=== PATIENT | male | born 1955 | race Two or more races ===

== ENCOUNTER 2019-03-19 08:26 | Inpatient (IN) | payer MEDICAID ==
[2019-03-19] VITALS (31 sets, daily range): BP systolic 115–172; BP diastolic 63–99
[~2019-03-19] VITALS: Ht 172.7 cm; Wt 74.0 kg
[2019-03-19] MEDS ORDERED: SODIUM CHLORIDE 0.9% 10ML VIAL ONE (08:30)
[2019-03-19] MEDS ORDERED: SUCCINYLCHOLINE CHLORIDE 200MG/10ML IV ONE (08:30)
[2019-03-19] MEDS ORDERED: ETOMIDATE 2MG/ML 10ML VIAL IV ONE (08:30)
[2019-03-19] MEDS ORDERED: NALOXONE HCL 1 MG/ML 2ML VIAL ONE (08:34)
[2019-03-19 09:08] LABS: CHLORIDE 108 mEq/L (98-107)
[2019-03-19 09:16] LABS: CREATINE KINASE 382 IU/L (39-308)
[2019-03-19 09:31] LABS: ETHANOL BLOOD 429 mg/dL
[2019-03-19] MEDS ORDERED: INSULIN REGULAR (HUMULIN R) 300UNITS/3ML IV ONE (09:45)
[2019-03-19] MEDS ORDERED: CALCIUM CHLORIDE 1GM/10ML SYR IV ONE (09:45)
[2019-03-19] MEDS ORDERED: DEXTROSE 50% WATER 50ML SYRINGE IV ONE ×2 (09:45→12:30)
[2019-03-19] MEDS ORDERED: SODIUM BICARBONATE 8.4% 1 MEQ/ML 50ML SYR IV ONE (09:45)
[2019-03-19 11:18] LABS: CLARITY URINE CLEAR (CLEAR); COLOR URINE YELLOW (YELLOW); KETONES URINE NEGATIVE (NEGATIVE); LEUKOCYTE ESTERASE URINE NEGATIVE (NEGATIVE); NITRITE URINE NEGATIVE (NEGATIVE); OCCULT BLOOD URINE TRACE (NEGATIVE); PROTEIN URINE TRACE (NEGATIVE); SPECIFIC GRAVITY URINE 1.011 (1.005-1.030); UROBILINOGEN URINE 0.2 E.U./dL (0.2-1.0)
[2019-03-19 11:37] LABS: INR 0.9; PROTHROMBIN TIME 9.7 sec (9.6-11.0)
[2019-03-19 11:38] LABS: *AMPHETAMINES SCREEN URINE NEGATIVE (NEGATIVE); *BARBITURATES SCREEN URINE NEGATIVE (NEGATIVE)
[2019-03-19 11:39] LABS: *BENZODIAZEPINES SCREEN URINE NEGATIVE (NEGATIVE); *COCAINE SCREEN URINE NEGATIVE (NEGATIVE); METHADONE URINE SCREEN NEGATIVE (NEGATIVE); OPIATES URINE SCREEN NEGATIVE (NEGATIVE); PHENCYCLIDINE URINE SCREEN NEGATIVE (NEGATIVE)
[2019-03-19 11:40] LABS: CANNABINOID URINE SCREEN NEGATIVE (NEGATIVE)
[2019-03-19 11:56] LABS: CHLORIDE 113 mEq/L (98-107)
[2019-03-19] MEDS ORDERED: SODIUM CHLORIDE 0.9% 1,000 ML IV ONE (12:00)
[2019-03-19 12:25] LABS: BASOPHILS % 0.9 % (0.0-2.0); EOSINOPHILS % 0.5 % (0.0-5.0); HEMATOCRIT. 28.3 % (42.0-52.0); HEMOGLOBIN. 9.5 g/dL (14.0-18.0); LYMPHOCYTES % 34.4 % (20.0-50.0); MEAN CORPUSCULAR HEMOGLOBIN 23.4 pg (28.0-32.0); MEAN PLATELET VOLUME 8.5 fl (7.4-10.4); MONOCYTES % 8.7 % (2.0-8.0); NEUTROPHILS % 55.5 % (40.0-76.0); PLATELET 448 x1000/uL (130-400); RED BLOOD CELL COUNT 4.04 mill/uL (4.7-6.1); RED CELL DISTRIBUTION WIDTH 18.8 % (11.6-14.6)
[2019-03-19 13:15] LABS: PLATELET ESTIMATE INCREASED
[2019-03-19] MEDS ORDERED: IPRATROPIUM/ALBUTEROL 0.5-3(2.5)MG/3ML NEB HHN PRN (14:00)
[2019-03-19] MEDS ORDERED: FOLIC ACID 1 MG, THIAMINE HCL 100 MG, MVI, ADULT NO.1 10 ML in DEXTROSE 5% WATER 1,000 ML IV SCH ×4 (14:00)
[2019-03-19] MEDS ORDERED: LORAZEPAM 2MG/ML CPJ IV PRN (14:00)
[2019-03-19 14:20] LABS: BG BASE EXCESS -0.9 mmol/L (-2.0-2.0); BG CARBOXYHEMOGLOBIN 0.2 % (0.5-1.5); BG DEOXYHEMOGLOBIN 0.7 % (0.0-5.0); BG FRACTION INSPIRED OXYGEN 100; BG HCO3 ACT 26.5 mmol/L (22.0-26.0); BG METHEMOGLOBIN 0.1 % (0.0-1.5); BG OXYGEN SATURATION 99.3 % (92.0-98.5); BG PH 7.277 (7.350-7.450); BG PO2 519.2 mmHg (75.0-100.0); BG SAMPLE SITE LEFT FEMORAL; BG TIDAL VOLUME(mL) 500 mL; BG TOTAL HEMOGLOBIN 10.3 g/dL (12.0-18.0); BG VENT MODE VENT - A/C; BG VENT RATE 14 set
[2019-03-19] MEDS ORDERED: MIDAZOLAM HCL 50 MG in DEXTROSE 5% WATER 40 ML IV PRN (14:30)
[2019-03-19] MEDS ORDERED: FENTANYL CITRATE/PF 500 MCG in SODIUM CHLORIDE 0.9% 40 ML IV PRN (14:30)
[2019-03-19 14:36] LABS: HEPATITIS B SURFACE ANTIGEN NEGATIVE
[2019-03-19 15:05] LABS: HEPATITIS A AB IGM NEGATIVE (NEGATIVE)
[2019-03-19] MEDS: ENOXAPARIN 40MG/0.4ML SYR SUBCUT SCH (17:58)
[2019-03-19] MEDS: LOSARTAN POTASSIUM 100 MG TABLET PO SCH (17:59)
[2019-03-19] MEDS: DEXT 5%/0.45% NACL 1000ML 1,000 ML IV SCH (17:59)
[2019-03-19] MEDS: FOLIC ACID 1 MG, THIAMINE HCL 100 MG, MVI, ADULT NO.1 10 ML in DEXTROSE 5% WATER 1,000 ML IV SCH ×4 (18:00)
[2019-03-19] MEDS: FENTANYL CITRATE/PF 500 MCG in SODIUM CHLORIDE 0.9% 40 ML IV PRN (18:57)
[2019-03-19] MEDS ORDERED: DEXTROSE 50% WATER 50ML SYRINGE IV PRN (20:30)
[2019-03-19] MEDS: IPRATROPIUM/ALBUTEROL 0.5-3(2.5)MG/3ML NEB HHN SCH (20:55)
[2019-03-19] MEDS: BLOOD SUGAR DIAGNOSTIC STRIP TEST SCH (22:08)
[2019-03-20] VITALS (97 sets, daily range): BP systolic 119–175; BP diastolic 58–114
[2019-03-20] MEDS: FENTANYL CITRATE/PF 500 MCG in SODIUM CHLORIDE 0.9% 40 ML IV PRN ×4 (00:39→22:05)
[2019-03-20] MEDS: IPRATROPIUM/ALBUTEROL 0.5-3(2.5)MG/3ML NEB HHN SCH ×4 (01:39→19:45)
[2019-03-20] MEDS: MIDAZOLAM HCL 50 MG in DEXTROSE 5% WATER 40 ML IV PRN ×2 (02:10→10:29)
[2019-03-20] MEDS: DEXT 5%/0.45% NACL 1000ML 1,000 ML IV SCH ×2 (05:13→13:12)
[2019-03-20 05:38] LABS: BASOPHILS % 0.8 % (0.0-2.0); EOSINOPHILS % 1.1 % (0.0-5.0); HEMATOCRIT. 27.7 % (42.0-52.0); HEMOGLOBIN. 9.2 g/dL (14.0-18.0); LYMPHOCYTES % 15.6 % (20.0-50.0); MEAN CORPUSCULAR HEMOGLOBIN 23.2 pg (28.0-32.0); MEAN CORPUSCULAR VOLUME 69.9 fL (80.0-94.0); MEAN PLATELET VOLUME 8.5 fl (7.4-10.4); MONOCYTES % 12.5 % (2.0-8.0); PLATELET 281 x1000/uL (130-400); RED BLOOD CELL COUNT 3.96 mill/uL (4.7-6.1); RED CELL DISTRIBUTION WIDTH 18.7 % (11.6-14.6)
[2019-03-20 06:01] LABS: CHLORIDE 110 mEq/L (98-107)
[2019-03-20] MEDS: BLOOD SUGAR DIAGNOSTIC STRIP TEST SCH ×4 (06:30→22:09)
[2019-03-20] MEDS ORDERED: POTASSIUM CHLORIDE 20MEQ TABLET SR PO NR (08:15)
[2019-03-20] MEDS ORDERED: AMLODIPINE 5MG TABLET NG SCH (09:00)
[2019-03-20 09:07] LABS: BG CARBOXYHEMOGLOBIN 0.3 % (0.5-1.5); BG DEOXYHEMOGLOBIN 1.4 % (0.0-5.0); BG FRACTION INSPIRED OXYGEN 40; BG HCO3 ACT 27.4 mmol/L (22.0-26.0); BG METHEMOGLOBIN 0.3 % (0.0-1.5); BG OXYGEN SATURATION 98.6 % (92.0-98.5); BG PCO2 41.6 mmHg (35.0-45.0); BG PH 7.437 (7.350-7.450); BG PO2 152.8 mmHg (75.0-100.0); BG SAMPLE SITE LEFT RADIAL; BG TIDAL VOLUME(mL) 500 mL; BG VENT MODE VENT - A/C; BG VENT RATE 16 set
[2019-03-20] MEDS: PANTOPRAZOLE SODIUM 40 MG/VIAL IV SCH (09:12)
[2019-03-20] MEDS: LOSARTAN POTASSIUM 100 MG TABLET PO SCH (09:13)
[2019-03-20] MEDS: ENOXAPARIN 40MG/0.4ML SYR SUBCUT SCH (09:13)
[2019-03-20] MEDS: HYDRALAZINE 20MG/ML VIAL IV PRN (12:34)
[2019-03-20 15:42] LABS: BG BASE EXCESS 2.6 mmol/L (-2.0-2.0); BG CARBOXYHEMOGLOBIN 0.3 % (0.5-1.5); BG DEOXYHEMOGLOBIN 3.3 % (0.0-5.0); BG FRACTION INSPIRED OXYGEN 35; BG HCO3 ACT 26.6 mmol/L (22.0-26.0); BG METHEMOGLOBIN 0.2 % (0.0-1.5); BG OXYGEN SATURATION 96.7 % (92.0-98.5); BG OXYHEMOGLOBIN 96.2 % (94.0-97.0); BG PCO2 38.8 mmHg (35.0-45.0); BG PH 7.454 (7.350-7.450); BG PO2 93.6 mmHg (75.0-100.0); BG PRESSURE SUPPORT 14; BG SAMPLE SITE LEFT RADIAL; BG TIDAL VOLUME(mL) 500 mL; BG TOTAL HEMOGLOBIN 9.7 g/dL (12.0-18.0); BG VENT MODE VENT - SIMV; BG VENT RATE 12 set
[2019-03-20] MEDS: HYDRALAZINE HCL 100MG TABLET PO SCH (16:40)
[2019-03-20] MEDS: AMLODIPINE 5MG TABLET PO SCH (16:40)
[2019-03-20] MEDS: FOLIC ACID 1 MG, THIAMINE HCL 100 MG, MVI, ADULT NO.1 10 ML in DEXTROSE 5% WATER 1,000 ML IV SCH ×4 (19:50)
[2019-03-20 21:14] LABS: T4 FREE 1.07 ng/dL (0.76-1.46)
[2019-03-20 21:27] LABS: FOLIC ACID (FOLATE) SERUM 18.9 ng/mL (>5.38)
[2019-03-21] VITALS (100 sets, daily range): BP systolic 80–170; BP diastolic 32–120
[2019-03-21] MEDS: MIDAZOLAM HCL 50 MG in DEXTROSE 5% WATER 40 ML IV PRN ×3 (00:56→15:41)
[2019-03-21] MEDS: IPRATROPIUM/ALBUTEROL 0.5-3(2.5)MG/3ML NEB HHN SCH ×4 (02:19→21:17)
[2019-03-21] MEDS: ACETAMINOPHEN 325MG TABLET PO PRN ×2 (04:26→17:01)
[2019-03-21 05:29] LABS: HEMATOCRIT. 25.6 % (42.0-52.0); HEMOGLOBIN. 8.6 g/dL (14.0-18.0); MEAN CORPUSCULAR HEMOGLOBIN 23.1 pg (28.0-32.0); MEAN CORPUSCULAR VOLUME 68.7 fL (80.0-94.0); MEAN PLATELET VOLUME 8.8 fl (7.4-10.4); PLATELET 226 x1000/uL (130-400); RED BLOOD CELL COUNT 3.72 mill/uL (4.7-6.1); RED CELL DISTRIBUTION WIDTH 18.1 % (11.6-14.6)
[2019-03-21 05:51] LABS: CHLORIDE 106 mEq/L (98-107)
[2019-03-21] MEDS: FENTANYL CITRATE/PF 500 MCG in SODIUM CHLORIDE 0.9% 40 ML IV PRN ×3 (06:02→19:40)
[2019-03-21] MEDS: DEXT 5%/0.45% NACL 1000ML 1,000 ML IV SCH ×3 (06:04→21:31)
[2019-03-21] MEDS: BLOOD SUGAR DIAGNOSTIC STRIP TEST SCH ×3 (06:09→16:53)
[2019-03-21] MEDS: LOSARTAN POTASSIUM 100 MG TABLET PO SCH (09:05)
[2019-03-21] MEDS: HYDRALAZINE HCL 100MG TABLET PO SCH ×3 (09:06→16:57)
[2019-03-21] MEDS: ENOXAPARIN 40MG/0.4ML SYR SUBCUT SCH (09:06)
[2019-03-21] MEDS: AMLODIPINE 5MG TABLET PO SCH ×2 (09:06→16:57)
[2019-03-21] MEDS: PANTOPRAZOLE SODIUM 40 MG/VIAL IV SCH (09:06)
[2019-03-21 10:25] LABS: PLATELET ESTIMATE NORMAL
[2019-03-21] MEDS ORDERED: POTASSIUM CHLORIDE 20MEQ TABLET SR PO NR (11:15)
[2019-03-21] MEDS: ACETYLCYSTEINE 100MG/ML 10% VIAL 4ML INH SCH (13:33)
[2019-03-21 14:18] LABS: BG BASE EXCESS 1.4 mmol/L (-2.0-2.0); BG CARBOXYHEMOGLOBIN 0.5 % (0.5-1.5); BG DEOXYHEMOGLOBIN 2.7 % (0.0-5.0); BG FRACTION INSPIRED OXYGEN 35; BG HCO3 ACT 25.7 mmol/L (22.0-26.0); BG METHEMOGLOBIN 0.3 % (0.0-1.5); BG OXYGEN SATURATION 97.3 % (92.0-98.5); BG OXYHEMOGLOBIN 96.5 % (94.0-97.0); BG PCO2 39.4 mmHg (35.0-45.0); BG PH 7.432 (7.350-7.450); BG PO2 96.4 mmHg (75.0-100.0); BG PRESSURE SUPPORT 14; BG SAMPLE SITE LEFT RADIAL; BG TIDAL VOLUME(mL) 500 mL; BG TOTAL HEMOGLOBIN 10.5 g/dL (12.0-18.0); BG VENT MODE VENT - SIMV; BG VENT RATE 8 set
[2019-03-22] VITALS (97 sets, daily range): BP systolic 95–184; BP diastolic 30–119
[2019-03-22] MEDS: BLOOD SUGAR DIAGNOSTIC STRIP TEST SCH ×4 (00:04→23:34)
[2019-03-22] MEDS: FOLIC ACID 1 MG, THIAMINE HCL 100 MG, MVI, ADULT NO.1 10 ML in DEXTROSE 5% WATER 1,000 ML IV SCH ×8 (00:04→20:38)
[2019-03-22] MEDS: IPRATROPIUM/ALBUTEROL 0.5-3(2.5)MG/3ML NEB HHN SCH ×4 (01:56→20:26)
[2019-03-22] MEDS: ACETYLCYSTEINE 100MG/ML 10% VIAL 4ML INH SCH ×3 (01:56→17:14)
[2019-03-22] MEDS: FENTANYL CITRATE/PF 500 MCG in SODIUM CHLORIDE 0.9% 40 ML IV PRN ×4 (02:25→21:22)
[2019-03-22 06:00] LABS: HEMATOCRIT. 27.7 % (42.0-52.0); HEMOGLOBIN. 9.1 g/dL (14.0-18.0); MEAN CORPUSCULAR VOLUME 69.8 fL (80.0-94.0); MEAN PLATELET VOLUME 9.1 fl (7.4-10.4); PLATELET 210 x1000/uL (130-400); RED BLOOD CELL COUNT 3.97 mill/uL (4.7-6.1); RED CELL DISTRIBUTION WIDTH 17.8 % (11.6-14.6)
[2019-03-22] MEDS: MIDAZOLAM HCL 50 MG in DEXTROSE 5% WATER 40 ML IV PRN ×3 (06:14→19:44)
[2019-03-22 06:18] LABS: CHLORIDE 100 mEq/L (98-107)
[2019-03-22 08:49] LABS: PLATELET ESTIMATE NORMAL
[2019-03-22] MEDS: PANTOPRAZOLE SODIUM 40 MG/VIAL IV SCH (09:39)
[2019-03-22] MEDS: HYDRALAZINE HCL 100MG TABLET PO SCH ×3 (09:40→17:14)
[2019-03-22] MEDS: ENOXAPARIN 40MG/0.4ML SYR SUBCUT SCH (09:40)
[2019-03-22] MEDS: LOSARTAN POTASSIUM 100 MG TABLET PO SCH (09:40)
[2019-03-22] MEDS: DEXT 5%/0.45% NACL 1000ML 1,000 ML IV SCH ×2 (09:40→16:00)
[2019-03-22] MEDS: AMLODIPINE 5MG TABLET PO SCH ×2 (09:41→17:13)
[2019-03-22] MEDS ORDERED: POTASSIUM CHLORIDE 20MEQ TABLET SR PO NR (10:00)
[2019-03-22] MEDS: PIPERACILLIN/TAZOBACTAM 3.375 G in DEXT 5% WATER 100 ML IV SCH ×3 (13:00→23:34)
[2019-03-22] MEDS: ACETAMINOPHEN 325MG TABLET PO PRN (17:14)
[2019-03-23] VITALS (86 sets, daily range): BP systolic 99–150; BP diastolic 46–107
[2019-03-23] MEDS: ACETYLCYSTEINE 100MG/ML 10% VIAL 4ML INH SCH ×3 (00:22→16:00)
[2019-03-23] MEDS: IPRATROPIUM/ALBUTEROL 0.5-3(2.5)MG/3ML NEB HHN SCH ×6 (00:22→20:15)
[2019-03-23] MEDS: MIDAZOLAM HCL 50 MG in DEXTROSE 5% WATER 40 ML IV PRN ×2 (01:30→09:54)
[2019-03-23] MEDS: FENTANYL CITRATE/PF 500 MCG in SODIUM CHLORIDE 0.9% 40 ML IV PRN (04:01)
[2019-03-23 05:33] LABS: CHLORIDE 101 mEq/L (98-107)
[2019-03-23 05:35] LABS: HEMATOCRIT. 25.4 % (42.0-52.0); HEMOGLOBIN. 8.5 g/dL (14.0-18.0); MEAN CORPUSCULAR HEMOGLOBIN 23.1 pg (28.0-32.0); MEAN CORPUSCULAR VOLUME 69.4 fL (80.0-94.0); MEAN PLATELET VOLUME 8.8 fl (7.4-10.4); PLATELET 210 x1000/uL (130-400); RED BLOOD CELL COUNT 3.67 mill/uL (4.7-6.1); RED CELL DISTRIBUTION WIDTH 17.9 % (11.6-14.6)
[2019-03-23] MEDS: BLOOD SUGAR DIAGNOSTIC STRIP TEST SCH ×4 (05:49→23:29)
[2019-03-23] MEDS: DEXT 5%/0.45% NACL 1000ML 1,000 ML IV SCH ×3 (06:02→22:00)
[2019-03-23] MEDS: PIPERACILLIN/TAZOBACTAM 3.375 G in DEXT 5% WATER 100 ML IV SCH ×4 (06:02→23:28)
[2019-03-23 08:39] LABS: PLATELET ESTIMATE NORMAL
[2019-03-23] MEDS: HYDRALAZINE HCL 100MG TABLET PO SCH ×3 (09:00→17:17)
[2019-03-23] MEDS: LOSARTAN POTASSIUM 100 MG TABLET PO SCH (09:00)
[2019-03-23] MEDS: AMLODIPINE 5MG TABLET PO SCH ×2 (09:00→17:16)
[2019-03-23] MEDS: PANTOPRAZOLE SODIUM 40 MG/VIAL IV SCH (09:19)
[2019-03-23] MEDS: ENOXAPARIN 40MG/0.4ML SYR SUBCUT SCH (09:19)
[2019-03-23] MEDS ORDERED: POTASSIUM CHLORIDE 20MEQ TABLET SR PO SCH (10:00)
[2019-03-23 13:14] LABS: BG BASE EXCESS 3.6 mmol/L (-2.0-2.0); BG CARBOXYHEMOGLOBIN 0.1 % (0.5-1.5); BG DEOXYHEMOGLOBIN 1.8 % (0.0-5.0); BG FRACTION INSPIRED OXYGEN 40; BG HCO3 ACT 28.9 mmol/L (22.0-26.0); BG METHEMOGLOBIN 0.1 % (0.0-1.5); BG OXYGEN SATURATION 98.2 % (92.0-98.5); BG PCO2 47.2 mmHg (35.0-45.0); BG PH 7.405 (7.350-7.450); BG PO2 120.1 mmHg (75.0-100.0); BG PRESSURE SUPPORT 8; BG SAMPLE SITE RIGHT RADIAL; BG TOTAL HEMOGLOBIN 9.8 g/dL (12.0-18.0); BG VENT MODE VENT - CPAP
[2019-03-23] MEDS: FOLIC ACID 1 MG, THIAMINE HCL 100 MG, MVI, ADULT NO.1 10 ML in DEXTROSE 5% WATER 1,000 ML IV SCH ×4 (23:28)
[2019-03-24] VITALS (32 sets, daily range): BP systolic 116–172; BP diastolic 56–120
[2019-03-24] MEDS: IPRATROPIUM/ALBUTEROL 0.5-3(2.5)MG/3ML NEB HHN SCH ×6 (00:08→20:00)
[2019-03-24] MEDS: ACETYLCYSTEINE 100MG/ML 10% VIAL 4ML INH SCH ×3 (00:08→16:06)
[2019-03-24 05:44] LABS: CHLORIDE 105 mEq/L (98-107)
[2019-03-24 05:46] LABS: HEMATOCRIT. 24.2 % (42.0-52.0); HEMOGLOBIN. 8.2 g/dL (14.0-18.0); MEAN CORPUSCULAR HEMOGLOBIN 23.3 pg (28.0-32.0); MEAN CORPUSCULAR VOLUME 69.1 fL (80.0-94.0); MEAN PLATELET VOLUME 8.8 fl (7.4-10.4); PLATELET 252 x1000/uL (130-400); RED BLOOD CELL COUNT 3.51 mill/uL (4.7-6.1); RED CELL DISTRIBUTION WIDTH 17.9 % (11.6-14.6)
[2019-03-24] MEDS: BLOOD SUGAR DIAGNOSTIC STRIP TEST SCH ×3 (06:01→17:30)
[2019-03-24] MEDS: PIPERACILLIN/TAZOBACTAM 3.375 G in DEXT 5% WATER 100 ML IV SCH ×4 (06:02→23:16)
[2019-03-24] MEDS: HYDRALAZINE 20MG/ML VIAL IV PRN (06:13)
[2019-03-24 08:07] LABS: PLATELET ESTIMATE NORMAL
[2019-03-24] MEDS ORDERED: BISACODYL 10MG SUPP PR SCH (09:30)
[2019-03-24] MEDS: PANTOPRAZOLE SODIUM 40 MG/VIAL IV SCH (09:50)
[2019-03-24] MEDS: HYDRALAZINE HCL 100MG TABLET PO SCH ×3 (09:51→17:29)
[2019-03-24] MEDS: ENOXAPARIN 40MG/0.4ML SYR SUBCUT SCH (09:51)
[2019-03-24] MEDS: AMLODIPINE 5MG TABLET PO SCH ×2 (09:52→17:30)
[2019-03-24] MEDS: DEXT 5%/0.45% NACL 1000ML 1,000 ML IV SCH ×2 (09:52→15:46)
[2019-03-24] MEDS: LOSARTAN POTASSIUM 100 MG TABLET PO SCH (09:52)
[2019-03-24] MEDS: METOCLOPRAMIDE HCL 10MG/2ML VIAL IV SCH ×3 (11:51→23:16)
[2019-03-24] MEDS: METOPROLOL TARTRATE 25MG TABLET PO SCH ×2 (11:52→21:31)
[2019-03-24] MEDS ORDERED: POTASSIUM CHLORIDE 20MEQ/PACKET PO NR (14:00)
[2019-03-24] MEDS: LORAZEPAM 2MG/ML CPJ IV PRN (14:10)
[2019-03-24] MEDS ORDERED: MAGNESIUM 2 G PREMIX 50 ML IV NR (15:00)
[2019-03-24] MEDS: CLONIDINE 0.1MG TABLET PO SCH ×2 (15:44→21:31)
[2019-03-24] MEDS: FOLIC ACID 1 MG, THIAMINE HCL 100 MG, MVI, ADULT NO.1 10 ML in DEXTROSE 5% WATER 1,000 ML IV SCH ×4 (18:37)
[2019-03-25] VITALS (12 sets, daily range): BP systolic 108–156; BP diastolic 63–97
[2019-03-25] MEDS: ACETYLCYSTEINE 100MG/ML 10% VIAL 4ML INH SCH ×3 (00:38→14:00)
[2019-03-25] MEDS: IPRATROPIUM/ALBUTEROL 0.5-3(2.5)MG/3ML NEB HHN SCH ×6 (00:38→20:23)
[2019-03-25] MEDS: PIPERACILLIN/TAZOBACTAM 3.375 G in DEXT 5% WATER 100 ML IV SCH ×3 (05:46→17:07)
[2019-03-25] MEDS: BLOOD SUGAR DIAGNOSTIC STRIP TEST SCH ×4 (05:47→17:08)
[2019-03-25] MEDS: LORAZEPAM 2MG/ML CPJ IV PRN ×6 (05:47→21:48)
[2019-03-25] MEDS: METOCLOPRAMIDE HCL 10MG/2ML VIAL IV SCH ×3 (05:47→12:00)
[2019-03-25] MEDS: CLONIDINE 0.1MG TABLET PO SCH ×3 (05:54→21:29)
[2019-03-25] MEDS: DEXT 5%/0.45% NACL 1000ML 1,000 ML IV SCH (06:02)
[2019-03-25] MEDS: PANTOPRAZOLE SODIUM 40 MG/VIAL IV SCH (09:06)
[2019-03-25] MEDS: ENOXAPARIN 40MG/0.4ML SYR SUBCUT SCH (09:06)
[2019-03-25] MEDS: LOSARTAN POTASSIUM 100 MG TABLET PO SCH (09:07)
[2019-03-25] MEDS: ACETAMINOPHEN 325MG TABLET PO PRN ×2 (09:07→17:29)
[2019-03-25] MEDS: METOPROLOL TARTRATE 25MG TABLET PO SCH ×2 (09:07→21:29)
[2019-03-25] MEDS: AMLODIPINE 5MG TABLET PO SCH ×2 (09:08→17:28)
[2019-03-25] MEDS: HYDRALAZINE HCL 100MG TABLET PO SCH ×3 (09:08→17:28)
[2019-03-25] MEDS: ONDANSETRON HCL 4MG/2ML INJ IV PRN ×2 (09:20→18:00)
[2019-03-25 10:02] LABS: CHLORIDE 103 mEq/L (98-107)
[2019-03-25 10:09] LABS: BASOPHILS % 1.1 % (0.0-2.0); EOSINOPHILS % 1.1 % (0.0-5.0); HEMATOCRIT. 25.2 % (42.0-52.0); HEMOGLOBIN. 8.2 g/dL (14.0-18.0); LYMPHOCYTES % 23.1 % (20.0-50.0); MEAN CORPUSCULAR HEMOGLOBIN 22.6 pg (28.0-32.0); MEAN CORPUSCULAR VOLUME 69.3 fL (80.0-94.0); MEAN PLATELET VOLUME 8.3 fl (7.4-10.4); MONOCYTES % 11.8 % (2.0-8.0); NEUTROPHILS % 62.9 % (40.0-76.0); PLATELET 304 x1000/uL (130-400); RED BLOOD CELL COUNT 3.64 mill/uL (4.7-6.1); RED CELL DISTRIBUTION WIDTH 17.7 % (11.6-14.6)
[2019-03-25] MEDS ORDERED: POTASSIUM CHLORIDE 20MEQ TABLET SR PO NR (11:57)
[2019-03-25] MEDS: RISPERIDONE 1MG TABLET PO SCH (13:33)
[2019-03-25] MEDS ORDERED: CHLORDIAZEPOXIDE 5 MG CAPSULE PO SCH ×2 (14:00→14:45)
[2019-03-25] MEDS ORDERED: CHLORDIAZEPOXIDE 25MG CAPSULE PO SCH (14:00)
[2019-03-25] MEDS: CHLORDIAZEPOXIDE 10MG CAPSULE PO SCH ×2 (15:01→21:30)
[2019-03-26] VITALS (17 sets, daily range): BP systolic 131–162; BP diastolic 61–115
[2019-03-26] MEDS: ACETYLCYSTEINE 100MG/ML 10% VIAL 4ML INH SCH ×3 (00:11→21:16)
[2019-03-26] MEDS: IPRATROPIUM/ALBUTEROL 0.5-3(2.5)MG/3ML NEB HHN SCH ×6 (00:11→21:13)
[2019-03-26] MEDS: PIPERACILLIN/TAZOBACTAM 3.375 G in DEXT 5% WATER 100 ML IV SCH ×5 (00:49→22:12)
[2019-03-26] MEDS: BLOOD SUGAR DIAGNOSTIC STRIP TEST SCH ×5 (00:49→23:43)
[2019-03-26] MEDS: LORAZEPAM 2MG/ML CPJ IV PRN ×4 (00:55→22:13)
[2019-03-26] MEDS: CHLORDIAZEPOXIDE 10MG CAPSULE PO SCH ×3 (06:01→22:12)
[2019-03-26] MEDS: CLONIDINE 0.1MG TABLET PO SCH ×3 (06:01→22:12)
[2019-03-26] MEDS: LOSARTAN POTASSIUM 100 MG TABLET PO SCH (08:31)
[2019-03-26] MEDS: HYDRALAZINE HCL 100MG TABLET PO SCH ×3 (08:32→17:54)
[2019-03-26] MEDS: AMLODIPINE 5MG TABLET PO SCH ×2 (08:32→17:53)
[2019-03-26] MEDS: METOPROLOL TARTRATE 25MG TABLET PO SCH ×2 (08:32→22:13)
[2019-03-26] MEDS: FAMOTIDINE 20MG/2ML VIAL IV SCH ×2 (08:33→22:13)
[2019-03-26] MEDS: ENOXAPARIN 40MG/0.4ML SYR SUBCUT SCH (08:33)
[2019-03-26] MEDS: RISPERIDONE 1MG TABLET PO SCH (08:36)
[2019-03-26] MEDS: FOLIC ACID/VITAMIN B COMP W-C TABLET PO SCH (10:00)
[2019-03-26 11:14] LABS: BASOPHILS % 0.7 % (0.0-2.0); EOSINOPHILS % 1.5 % (0.0-5.0); HEMATOCRIT. 30.2 % (42.0-52.0); HEMOGLOBIN. 9.8 g/dL (14.0-18.0); LYMPHOCYTES % 27.4 % (20.0-50.0); MEAN CORPUSCULAR HEMOGLOBIN 22.5 pg (28.0-32.0); MEAN CORPUSCULAR VOLUME 69.2 fL (80.0-94.0); MEAN PLATELET VOLUME 8.8 fl (7.4-10.4); MONOCYTES % 10.4 % (2.0-8.0); PLATELET 398 x1000/uL (130-400); RED BLOOD CELL COUNT 4.36 mill/uL (4.7-6.1); RED CELL DISTRIBUTION WIDTH 17.8 % (11.6-14.6)
[2019-03-26 11:25] LABS: CHLORIDE 102 mEq/L (98-107)
[2019-03-26] MEDS ORDERED: POTASSIUM CHLORIDE 20MEQ TABLET SR PO NR (12:30)
[2019-03-26] MEDS ORDERED: LACTULOSE 20G/30ML UDC PO NR (12:30)
[2019-03-26] MEDS: MULTIVITAMINS,THER W-MINERALS TABLET PO SCH (12:40)
[2019-03-27] VITALS (17 sets, daily range): BP systolic 104–147; BP diastolic 60–96
[2019-03-27] MEDS: IPRATROPIUM/ALBUTEROL 0.5-3(2.5)MG/3ML NEB HHN SCH ×6 (00:55→19:53)
[2019-03-27] MEDS: LORAZEPAM 2MG/ML CPJ IV PRN (01:42)
[2019-03-27] MEDS: PIPERACILLIN/TAZOBACTAM 3.375 G in DEXT 5% WATER 100 ML IV SCH ×2 (05:08→12:00)
[2019-03-27] MEDS: CHLORDIAZEPOXIDE 10MG CAPSULE PO SCH ×3 (05:09→21:42)
[2019-03-27] MEDS: CLONIDINE 0.1MG TABLET PO SCH ×3 (05:09→21:42)
[2019-03-27] MEDS: BLOOD SUGAR DIAGNOSTIC STRIP TEST SCH ×4 (05:40→23:13)
[2019-03-27] MEDS: FAMOTIDINE 20MG/2ML VIAL IV SCH (09:00)
[2019-03-27] MEDS: RISPERIDONE 1MG TABLET PO SCH (09:40)
[2019-03-27] MEDS: AMLODIPINE 5MG TABLET PO SCH ×2 (09:40→17:49)
[2019-03-27] MEDS: METOPROLOL TARTRATE 25MG TABLET PO SCH ×2 (09:40→21:42)
[2019-03-27] MEDS: MULTIVITAMINS,THER W-MINERALS TABLET PO SCH (09:41)
[2019-03-27] MEDS: HYDRALAZINE HCL 100MG TABLET PO SCH ×3 (09:41→17:49)
[2019-03-27] MEDS: FOLIC ACID/VITAMIN B COMP W-C TABLET PO SCH (09:41)
[2019-03-27] MEDS: ENOXAPARIN 40MG/0.4ML SYR SUBCUT SCH (09:41)
[2019-03-27] MEDS: LORAZEPAM 2MG/ML CPJ IM PRN (12:05)
[2019-03-27] MEDS: HALOPERIDOL LACTATE 5MG/ML VIAL IM PRN (12:05)
[2019-03-27] MEDS: NICOTINE 14MG PATCH TD SCH (12:14)
[2019-03-27] MEDS: LOSARTAN POTASSIUM 100 MG TABLET PO SCH (12:14)
[2019-03-27 17:05] LABS: BASOPHILS % 1.4 % (0.0-2.0); EOSINOPHILS % 1.7 % (0.0-5.0); HEMATOCRIT. 31.5 % (42.0-52.0); HEMOGLOBIN. 10.2 g/dL (14.0-18.0); LYMPHOCYTES % 27.9 % (20.0-50.0); MEAN CORPUSCULAR HEMOGLOBIN 22.5 pg (28.0-32.0); MEAN CORPUSCULAR VOLUME 69.3 fL (80.0-94.0); MEAN PLATELET VOLUME 8.9 fl (7.4-10.4); PLATELET 442 x1000/uL (130-400); RED BLOOD CELL COUNT 4.54 mill/uL (4.7-6.1); RED CELL DISTRIBUTION WIDTH 18.1 % (11.6-14.6)
[2019-03-27 17:26] LABS: CHLORIDE 102 mEq/L (98-107)
[2019-03-27 18:32] LABS: PLATELET ESTIMATE INCREASED
[2019-03-27] MEDS: FAMOTIDINE 20MG TABLET PO SCH (21:42)
[2019-03-28] VITALS (16 sets, daily range): BP systolic 106–136; BP diastolic 31–93
[2019-03-28] MEDS: IPRATROPIUM/ALBUTEROL 0.5-3(2.5)MG/3ML NEB HHN SCH ×5 (00:13→16:00)
[2019-03-28] MEDS: HALOPERIDOL LACTATE 5MG/ML VIAL IM PRN ×2 (03:13→16:24)
[2019-03-28] MEDS: BLOOD SUGAR DIAGNOSTIC STRIP TEST SCH ×3 (06:14→17:06)
[2019-03-28] MEDS: CLONIDINE 0.1MG TABLET PO SCH ×3 (06:14→20:49)
[2019-03-28] MEDS: CHLORDIAZEPOXIDE 10MG CAPSULE PO SCH ×3 (06:14→20:49)
[2019-03-28 07:12] LABS: HEMATOCRIT. 30.6 % (42.0-52.0); HEMOGLOBIN. 10.1 g/dL (14.0-18.0); MEAN CORPUSCULAR HEMOGLOBIN 22.5 pg (28.0-32.0); MEAN CORPUSCULAR VOLUME 68.2 fL (80.0-94.0); MEAN PLATELET VOLUME 8.8 fl (7.4-10.4); PLATELET 485 x1000/uL (130-400); RED BLOOD CELL COUNT 4.48 mill/uL (4.7-6.1); RED CELL DISTRIBUTION WIDTH 17.6 % (11.6-14.6)
[2019-03-28 07:25] LABS: CHLORIDE 103 mEq/L (98-107)
[2019-03-28] MEDS: MULTIVITAMINS,THER W-MINERALS TABLET PO SCH (08:25)
[2019-03-28] MEDS: RISPERIDONE 1MG TABLET PO SCH (08:25)
[2019-03-28] MEDS: FOLIC ACID/VITAMIN B COMP W-C TABLET PO SCH (08:25)
[2019-03-28] MEDS: AMLODIPINE 5MG TABLET PO SCH ×2 (08:26→16:24)
[2019-03-28] MEDS: ENOXAPARIN 40MG/0.4ML SYR SUBCUT SCH (08:26)
[2019-03-28] MEDS: NICOTINE 14MG PATCH TD SCH (08:33)
[2019-03-28] MEDS: HYDRALAZINE HCL 100MG TABLET PO SCH ×3 (08:36→16:24)
[2019-03-28] MEDS: METOPROLOL TARTRATE 25MG TABLET PO SCH ×2 (08:36→20:50)
[2019-03-28] MEDS: LOSARTAN POTASSIUM 100 MG TABLET PO SCH (09:00)
[2019-03-28] MEDS ORDERED: POTASSIUM CHLORIDE 20MEQ/PACKET PO SCH (13:30)
[2019-03-28 17:24] LABS: PLATELET ESTIMATE INCREASED
[2019-03-28] MEDS: LORAZEPAM 2MG/ML CPJ IM PRN (17:49)
[2019-03-28] MEDS: FAMOTIDINE 20MG TABLET PO SCH (20:49)
[2019-03-29] VITALS (17 sets, daily range): BP systolic 70–145; BP diastolic 40–94
[2019-03-29] MEDS: LORAZEPAM 2MG/ML CPJ IM PRN ×3 (00:55→13:13)
[2019-03-29] MEDS: BLOOD SUGAR DIAGNOSTIC STRIP TEST SCH ×4 (05:24→17:22)
[2019-03-29] MEDS: CHLORDIAZEPOXIDE 10MG CAPSULE PO SCH ×3 (05:24→22:44)
[2019-03-29] MEDS: CLONIDINE 0.1MG TABLET PO SCH ×3 (05:24→22:00)
[2019-03-29 07:31] LABS: HEMOGLOBIN. 9.5 g/dL (14.0-18.0); MEAN CORPUSCULAR HEMOGLOBIN 22.4 pg (28.0-32.0); MEAN CORPUSCULAR VOLUME 68.1 fL (80.0-94.0); MEAN PLATELET VOLUME 9.1 fl (7.4-10.4); PLATELET 512 x1000/uL (130-400); RED BLOOD CELL COUNT 4.25 mill/uL (4.7-6.1); RED CELL DISTRIBUTION WIDTH 17.5 % (11.6-14.6)
[2019-03-29] MEDS: IPRATROPIUM/ALBUTEROL 0.5-3(2.5)MG/3ML NEB HHN SCH ×5 (07:55→23:55)
[2019-03-29 07:57] LABS: CHLORIDE 101 mEq/L (98-107)
[2019-03-29] MEDS: AMLODIPINE 5MG TABLET PO SCH ×2 (08:40→17:00)
[2019-03-29] MEDS: MULTIVITAMINS,THER W-MINERALS TABLET PO SCH (08:40)
[2019-03-29] MEDS: FOLIC ACID/VITAMIN B COMP W-C TABLET PO SCH (08:40)
[2019-03-29] MEDS: LOSARTAN POTASSIUM 100 MG TABLET PO SCH (08:40)
[2019-03-29] MEDS: RISPERIDONE 1MG TABLET PO SCH (08:40)
[2019-03-29] MEDS: HYDRALAZINE HCL 100MG TABLET PO SCH ×3 (08:40→17:00)
[2019-03-29] MEDS: METOPROLOL TARTRATE 25MG TABLET PO SCH ×2 (08:41→21:00)
[2019-03-29] MEDS: HALOPERIDOL LACTATE 5MG/ML VIAL IM PRN ×2 (08:42→17:24)
[2019-03-29] MEDS: ACETAMINOPHEN 325MG TABLET PO PRN (08:42)
[2019-03-29] MEDS: NICOTINE 14MG PATCH TD SCH (08:43)
[2019-03-29] MEDS: ENOXAPARIN 40MG/0.4ML SYR SUBCUT SCH (08:44)
[2019-03-29 10:10] LABS: PLATELET ESTIMATE INCREASED
[2019-03-29] MEDS: FAMOTIDINE 20MG TABLET PO SCH (22:44)
[2019-03-30] VITALS (11 sets, daily range): BP systolic 42–131; BP diastolic 25–74
[2019-03-30] MEDS: CLONIDINE 0.1MG TABLET PO SCH ×3 (05:28→21:10)
[2019-03-30] MEDS: BLOOD SUGAR DIAGNOSTIC STRIP TEST SCH ×4 (05:48→17:42)
[2019-03-30] MEDS: CHLORDIAZEPOXIDE 10MG CAPSULE PO SCH ×2 (06:01→14:35)
[2019-03-30] MEDS: IPRATROPIUM/ALBUTEROL 0.5-3(2.5)MG/3ML NEB HHN SCH (07:32)
[2019-03-30] MEDS: ENOXAPARIN 40MG/0.4ML SYR SUBCUT SCH (09:35)
[2019-03-30] MEDS: NICOTINE 14MG PATCH TD SCH (09:35)
[2019-03-30] MEDS: RISPERIDONE 1MG TABLET PO SCH ×2 (09:36→19:59)
[2019-03-30] MEDS: MULTIVITAMINS,THER W-MINERALS TABLET PO SCH (09:36)
[2019-03-30] MEDS: LOSARTAN POTASSIUM 100 MG TABLET PO SCH (09:36)
[2019-03-30] MEDS: HYDRALAZINE HCL 100MG TABLET PO SCH (09:36)
[2019-03-30] MEDS: AMLODIPINE 5MG TABLET PO SCH ×2 (09:37→17:00)
[2019-03-30] MEDS: METOPROLOL TARTRATE 25MG TABLET PO SCH ×2 (09:37→19:54)
[2019-03-30] MEDS: FOLIC ACID/VITAMIN B COMP W-C TABLET PO SCH (09:37)
[2019-03-30 12:09] LABS: BASOPHILS % 0.4 % (0.0-2.0); EOSINOPHILS % 0.9 % (0.0-5.0); HEMATOCRIT. 27.8 % (42.0-52.0); HEMOGLOBIN. 9.1 g/dL (14.0-18.0); LYMPHOCYTES % 23.1 % (20.0-50.0); MEAN CORPUSCULAR HEMOGLOBIN 22.3 pg (28.0-32.0); MEAN CORPUSCULAR VOLUME 68.3 fL (80.0-94.0); MEAN PLATELET VOLUME 8.3 fl (7.4-10.4); MONOCYTES % 6.1 % (2.0-8.0); NEUTROPHILS % 69.5 % (40.0-76.0); PLATELET 497 x1000/uL (130-400); RED BLOOD CELL COUNT 4.07 mill/uL (4.7-6.1); RED CELL DISTRIBUTION WIDTH 17.8 % (11.6-14.6)
[2019-03-30] MEDS ORDERED: GUAIFENESIN 600MG ER TABLET PO PRN (12:45)
[2019-03-30 12:59] LABS: CHLORIDE 105 mEq/L (98-107)
[2019-03-30] MEDS: HYDRALAZINE HCL 50MG TABLET PO SCH ×2 (13:00→17:00)
[2019-03-30] MEDS: FAMOTIDINE 20MG TABLET PO SCH (19:59)
[2019-03-31] VITALS: BP 98/65
[2019-03-31] MEDS: BLOOD SUGAR DIAGNOSTIC STRIP TEST SCH ×2 (00:17→05:48)
[2019-03-31 05:48] VITALS: BP 118/57
[2019-03-31] MEDS: CLONIDINE 0.1MG TABLET PO SCH (05:48)
[2019-03-31 08:27] VITALS: BP 106/74
[2019-03-31] MEDS: MULTIVITAMINS,THER W-MINERALS TABLET PO SCH (08:44)
[2019-03-31] MEDS: NICOTINE 14MG PATCH TD SCH (08:44)
[2019-03-31] MEDS: FOLIC ACID/VITAMIN B COMP W-C TABLET PO SCH (08:44)
[2019-03-31] MEDS: ENOXAPARIN 40MG/0.4ML SYR SUBCUT SCH (08:44)
[2019-03-31] MEDS: AMLODIPINE 5MG TABLET PO SCH (08:45)
[2019-03-31] MEDS: RISPERIDONE 1MG TABLET PO SCH (08:45)
[2019-03-31] MEDS: LOSARTAN POTASSIUM 100 MG TABLET PO SCH (09:00)
[2019-03-31] MEDS: HYDRALAZINE HCL 50MG TABLET PO SCH (09:00)
[2019-03-31] MEDS: METOPROLOL TARTRATE 25MG TABLET PO SCH (09:00)
== END 2019-03-31 12:12 | disposition left against medical advice (07) | DRG 720 ==
LOC: ER 08:26 → MICUNO 13:36 → EDBD 13:36 → ENRESERV 15:35 → 5EST 03-24 15:00
PROVIDERS: ADMIT Internal Medicine Nephrology; ATTEND Internal Medicine Nephrology
PROC: 3E0V3GC Introduction of Other Therapeutic Substance into Bones, Percutaneous Approach (ICD-10-PCS; principal; 2019-03-19)
PROC: 5A1955Z Respiratory Ventilation, Greater than 96 Consecutive Hours (ICD-10-PCS; 2019-03-19)
PROC: 0BH17EZ Insertion of Endotracheal Airway into Trachea, Via Natural or Artificial Opening (ICD-10-PCS; 2019-03-19)
DX: A41.9 Sepsis, unspecified organism (principal); J96.02 Acute respiratory failure with hypercapnia; J69.0 Pneumonitis due to inhalation of food and vomit; G92 Toxic encephalopathy; E44.0 Moderate protein-calorie malnutrition; M62.82 Rhabdomyolysis; G90.8 Other disorders of autonomic nervous system; E87.5 Hyperkalemia; T51.0X1A Toxic effect of ethanol, accidental (unintentional), initial encounter; R00.1 Bradycardia, unspecified; E16.2 Hypoglycemia, unspecified; D64.9 Anemia, unspecified; Y90.8 Blood alcohol level of 240 mg/100 ml or more; B19.20 Unspecified viral hepatitis C without hepatic coma; E87.6 Hypokalemia; F10.129 Alcohol abuse with intoxication, unspecified; I10 Essential (primary) hypertension; X58.XXXA Exposure to other specified factors, initial encounter; S31.829A Unspecified open wound of left buttock, initial encounter; Z78.1 Physical restraint status; Z86.74 Personal history of sudden cardiac arrest; Y92.89 Other specified places as the place of occurrence of the external cause; Y93.89 Activity, other specified; Y99.8 Other external cause status
CPT/HCPCS: 36415; 36600; 70551; 71045; 74018; 76700; 80048; 80305; 80307; 80320; 80329; 81003; 82140; 82375; 82550; 82607; 82746; 82805; 82962; 83036; 83605; 83735; 83880; 84134; 84439; 84443; 84481; 84484; 86705; 86709; 86803; 87340; 92610; 93005; 93306; 93970; 94002; 94003; 94640; 94667; 97161; 97164; 97166; 99291; A6261; C1893; C9113; J0330; J0360; J1630; J1650; J1815; J2060; J2250; J2310; J2405; J2543; J2765; J3010; J3411; J3475; J3490; J7030; J7060; J7070; J7608; J7620; G0480